=== PATIENT | female | born 1945 | race Caucasian/White ===

== ENCOUNTER 2019-05-04 12:41 | Day surgery (SDC) | payer OTHER ==
[~2019-05-04] VITALS: Ht 152.4 cm; Wt 85.0 kg
[~2019-05-04 12:41] MED LIST: ASPI81EC PO; ATOR80 PO; BUDE6HFA INH; CELE200 PO; CHOL10002 PO; CYAN1000 PO; CYCL10 PO; FISH1000 PO; LISI20 PO; MELO7.5 PO; METF500 PO; METO25ER PO; MONT10T PO; OXYB5 PO; Omeprazole20 M1 PO; PARO20 PO; PARO30 PO
== END 2019-05-04 15:20 | disposition home or self-care (01) ==
LOC: ORSCSDS 12:41
PROVIDERS: Surgery
PROC: 0DBN8ZX Excision of Sigmoid Colon, Via Natural or Artificial Opening Endoscopic, Diagnostic (ICD-10-PCS; principal; 2019-05-04 14:00)
DX: Z12.11 Encounter for screening for malignant neoplasm of colon (principal); Z86.010 Personal history of colon polyps; K63.5 Polyp of colon; E11.9 Type 2 diabetes mellitus without complications; I10 Essential (primary) hypertension; G47.33 Obstructive sleep apnea (adult) (pediatric); Z79.84 Long term (current) use of oral hypoglycemic drugs; J44.9 Chronic obstructive pulmonary disease, unspecified; Z87.891 Personal history of nicotine dependence; Z68.36 Body mass index [BMI] 36.0-36.9, adult; E66.9 Obesity, unspecified; Z79.82 Long term (current) use of aspirin; Z79.899 Other long term (current) drug therapy
CPT/HCPCS: 82947; 88305; J2704; J7120

== ENCOUNTER 2022-01-05 18:54 | Inpatient (IN) | payer OTHER ==
[~2022-01-05] VITALS: Ht 152.4 cm; Wt 89.5 kg
[2022-01-05 19:27] LABS: BASOPHILS ABSOLUTE AUTO 0.02 K/mm3 (0.00-0.23); BASOPHILS PERCENT AUTO 0 % (0-2); EOSINOPHILS ABSOLUTE AUTO 0.04 K/mm3 (0.00-0.68); EOSINOPHILS PERCENT AUTO 1 % (0-6); Hematocrit 38.7 % (33.0-51.0); Hemoglobin 12.9 g/dL (11.5-16.0); IMMATURE GRAN ABSOLUTE AUTO 0.03 K/mm3 (0.00-0.10); IMMATURE GRAN PERCENT AUTO 0 % (0-1); LYMPHOCYTES ABSOLUTE AUTO 1.06 K/mm3 (0.84-5.20); LYMPHOCYTES PERCENT AUTO 15 % (21-46); MONOCYTES ABSOLUTE AUTO 0.47 K/mm3 (0.16-1.47); MONOCYTES PERCENT AUTO 7 % (4-13); Mean Corpuscular HGB 30.1 pg (26.0-34.0); Mean Corpuscular HGB Conc 33.3 g/dL (31.5-36.5); Mean Corpuscular Volume 90 fL (80-100); Mean Platelet Volume 9.2 fL (9.1-12.4); NEUTROPHILS ABSOLUTE AUTO 5.49 K/mm3 (1.96-9.15); NEUTROPHILS PERCENT AUTO 77 % (41-73); Platelet Count 259 K/mm3 (150-400); RDW Coefficient Variation 14.2 % (11.7-14.2); RDW Standard Deviation 46.9 fL (35.1-46.3); Red Blood Cell Count 4.29 M/mm3 (3.80-5.20); White Blood Cell Count 7.11 K/mm3 (4.00-11.30)
[2022-01-05 19:38] LABS: Alanine Aminotransfer (ALT/SGP 48 U/L (12-78); Albumin, Blood 3.3 g/dL (3.4-5.0); Albumin/Globulin Ratio 0.8 (0.8-1.8); Alk Phos 86 U/L (50-136); Anion Gap 7 mmol/L (6-16); Aspartate Aminotrans (AST/SGOT 32 U/L (12-37); Bilirubin, Total 0.3 mg/dL (0.1-1.0); Blood Urea Nitrogen 17 mg/dL (8-24); CO2, Blood 32 mmol/L (21-32); Calcium, Blood 9.4 mg/dL (8.5-10.1); Chloride, Blood 99 mmol/L (98-108); Creatinine, Blood 0.81 mg/dL (0.40-1.00); Globulin, Blood 3.9 g/dL (2.2-4.0); Glomerular Filtration Rate >60 (60-); Glucose, Blood 133 mg/dL (70-99); Potassium, Blood 3.6 mmol/L (3.5-5.5); Sodium, Blood 138 mmol/L (136-145); Total Protein, Blood 7.2 g/dL (6.4-8.2)
[2022-01-05 20:09] LABS: Source, Urine Straight Cath
[2022-01-05 20:17] LABS: Appearance, Urine Cloudy (Clear); Bilirubin, Urine Neg (Neg); Blood, Urine Neg (Neg); Color, Urine Yellow (P-Yellow); Glucose Qualitative, Urine Neg (Neg); Ketones, Urine Neg (Neg); Leukocyte Esterase, Urine 1+ (Neg); Nitrite, Urine Neg (Neg); Protein, Urine 1+ (Neg); Urobilinogen, Urine NORM (Normal)
[2022-01-05 20:32] LABS: Amorphous Heavy (0-Heavy); Bacteria Many /hpf; Mucus Light (0-Heavy); Red Blood Cells, Urine 0-2 /hpf (0-2); Squamous Epithelial Cells Few /hpf (Few); White Blood Cells, Urine 0-2 /hpf (0-5)
[2022-01-06 00:46] LABS: CHOL/HDL RATIO 2.9; Cholesterol 123 mg/dL (50-200); HDL Cholesterol 42 mg/dL (>39); LDL/HDL RATIO 1.4; Low Density Lipoprotein Chol 57 mg/dL (0-110); Triglycerides 119 mg/dL (30-160); Very Low Density Lipoprot Chol 23 mg/dL (6-32)
[2022-01-06 04:46] LABS: BASOPHILS ABSOLUTE AUTO 0.03 K/mm3 (0.00-0.23); BASOPHILS PERCENT AUTO 0 % (0-2); EOSINOPHILS ABSOLUTE AUTO 0.04 K/mm3 (0.00-0.68); EOSINOPHILS PERCENT AUTO 1 % (0-6); Hemoglobin 12.2 g/dL (11.5-16.0); IMMATURE GRAN ABSOLUTE AUTO 0.03 K/mm3 (0.00-0.10); IMMATURE GRAN PERCENT AUTO 0 % (0-1); LYMPHOCYTES ABSOLUTE AUTO 1.62 K/mm3 (0.84-5.20); LYMPHOCYTES PERCENT AUTO 19 % (21-46); MONOCYTES ABSOLUTE AUTO 0.71 K/mm3 (0.16-1.47); MONOCYTES PERCENT AUTO 8 % (4-13); Mean Corpuscular HGB 29.8 pg (26.0-34.0); Mean Corpuscular HGB Conc 32.1 g/dL (31.5-36.5); Mean Corpuscular Volume 93 fL (80-100); Mean Platelet Volume 9.6 fL (9.1-12.4); NEUTROPHILS PERCENT AUTO 72 % (41-73); Platelet Count 261 K/mm3 (150-400); RDW Coefficient Variation 14.4 % (11.7-14.2); RDW Standard Deviation 48.9 fL (35.1-46.3); Red Blood Cell Count 4.09 M/mm3 (3.80-5.20); White Blood Cell Count 8.73 K/mm3 (4.00-11.30)
--- NOTE | 2022-01-06 05:01 | NUR ---
ON ARRIVAL TO UNIT FROM ER PATIENT NOTED WITH SLIGHT LEFT FACIAL DROOP, ON 3L NC AND C/O DOUBLE VISION THAT IS RELIVED BY CLOSING ONE EYE. PATIENT ABLE TO CORRECTLY ANSWER A/OX4 QUESTIONS HOWEVER NOTED WITH CONFUSION AND INTERMITTENT APHASIA. NURSE BEDSIDE SWALLOW STUDY DONE AND PATIENT COUGHING AFTER SECOND WATER SPOON GIVEN. PT STATES THAT SHE TYPICALLY DOES NOT COUGH WHEN EATING/DRINKING. DR. WEINSTEIN NOTIFIED OF NURSE BEDSIDE SWALLOW STUDY RESULT AND OF PT C/O OF DIPLOPIA. PATIENT MADE NPO AND ST TO EVAL IN AM.
[2022-01-06 05:11] LABS: Anion Gap 7 mmol/L (6-16); Blood Urea Nitrogen 15 mg/dL (8-24); Bun/Creatinine Ratio 17.9 (12.0-20.0); CO2, Blood 31 mmol/L (21-32); Calcium, Blood 8.6 mg/dL (8.5-10.1); Chloride, Blood 100 mmol/L (98-108); Creatinine, Blood 0.84 mg/dL (0.40-1.00); Glomerular Filtration Rate >60 (60-); Glucose, Blood 104 mg/dL (70-99); Potassium, Blood 3.5 mmol/L (3.5-5.5); Sodium, Blood 138 mmol/L (136-145)
--- NOTE | 2022-01-06 18:27 | NUR ---
SHIFT SUMMARY AT START OF SHIFT PT HAD SOME HEADACHE AND NAUSEA THAT WAS POSITIONAL. SHE WAS ABLE TO DO A STAND PIVOT TO THE CHAIR TO GET HERSELF MORE COMFORTABEL, BUT WHEN WORKING WITH PT AND OT SHE FELT DIZZY AND NAUSEOUS THIS AM. COGNITIVELY SHE SEEMS TO BE AT HE [facility] KNOWING DATE, TIME, FRIENDS AND FAMILY WHO CALL , AND ABLE TO RECOUNT HER HEALTH HISTORY TO ME. SHE IS STILL HAVING TROUBLE WITH URIN OUTPUT STATING THAT SHE " CAN FEEL THAT IM FULL BUT I CAN'T MAKE MYSELF GO" SHE WAS STRAIGHT CATHED THIS AFTERNOON AFTER A BLADDER SCAN OF 538 ML/ SHE IS CALM AND COMPLIANT WITH CARE AND NO LONGER COMPLAINING OF HEADACHE OR NAUSEA. WILL CONTINUE TO MONITOR.
--- NOTE | 2022-01-07 06:35 | NUR ---
PATIENT WITH NO NOTED CHANGES OVERNIGHT. UNABLE TO VOID AND BLADDER SCAN DONE PER ORDER. BLADDER SCAN AT 0444 WAS 237 STRAIGHT CATH NOT INDICATED PER ORDER. PATIENT A/OX4. NO CHANGES IN NEURO STATUS, NO DRIFT NOTED TO BUE/BLE, SLIGHT LEFT FACIAL DROOP UNCHANGED. PATIENT DID C/O NAUSEA AND MEDICATED PER OCT.
--- NOTE | 2022-01-07 18:23 | NUR ---
SHIFT SUMMARY MS BRUSH IS A&OX4. VERY MILD LEFT FACIAL DROOP, RIGHT HAND GOLF CADDY WEAKER THAN LEFT, NO NOTICABLE DIFFERENCE IN LEG STRENGTH. PT HAS DIZZYNESS WHEN SHE SITS UPRIGHT, BUT HAS BEEN ABLE TO GET UP TO THE CHAIR FOR LONG PERIODS TODAY. SHE HAS WORKED WITH OT AND PT. SHE IS STILL HAVING DIFFICULTY URINATING. SHE HAS VOIDED TWICE (350CC UOP). ENCOURAGED TO DRINK, SHE'S DRINKING WATER BUT HAS A HEIGHTENED SENSE OF SMELL AND ALTERED TASTE SENSATION. BLADDER SCANS DONE - ORDER IN TO DO STRAIGHT CATH FOR GREATER THAN 450, HIGH 300S ON BLADDER SCAN. LEFT HAND TREMOR. NO PAIN. NO SOB. ON CONTINUOUS PULSE OX. TRIED TO WEAN HER OFF THE OXYGEN, BUT SATS DOWN TO 87% ON ROOM AIR. NOW ON 1L NC IN AFSANEH 90S. BED LOW, CALL LIGHT IN REACH. USING CALL LIGHT APPROPRIATELY TODAY.
--- NOTE | 2022-01-08 05:58 | NUR ---
SHIFT SUMMARY 76 YR F ADMITTED ON 01/06/22 FOR RIGHT SIDED INFARCT. FULL CODE. NO ACUTE CHANGES THIS SHIFT. PT IS ABLE TO GET UP W/ ASSISTANCE AND AMBULATE TO BATHROOM. SHE HAS VOIDED TWICE THIS SHIFT FOR >350 ML, SO BALDDER SCANS WERE NOT DONE. SHE HAS SLIGHT DIZZINESS WHEN SHE FIRST STANDS UP AND IS A BIT UNSTEADY ON HER FEET SO 1 PERSON ASSIST W/ GAIT BELT IS RECOMMENDED. PT IS A&O X4 AND IS COOPERATIVE WITH HER CARE. SHE IS PLEASANT AND SWEET AND SEEMS DETERMINED TO GET BETTER.
[2022-01-08] MEDS ORDERED: MECL25 PO (12:24)
[2022-01-08] MEDS ORDERED: CLOP75 PO (12:24)
[2022-01-08 13:08] LABS: Influenza A, PCR NEGATIVE (NEGATIVE); Influenza B, PCR NEGATIVE (NEGATIVE); Resp Syncytial Virus, PCR NEGATIVE (NEGATIVE); SARS-Cov-2 (COVID-19) PCR, MMC NEGATIVE (NEGATIVE)
--- NOTE | 2022-01-08 15:56 | NUR ---
DISCHARGE PATIENT TRANSPORTED VIA WHEELCHAIR TO [facility]. PATIENT GOING TO [facility]. DISCHARGE INSTRUCTIONS FAXED TO [facility]. MEDICATIONS FAXED TO [facility]. IV REMOVED WITHOUT DIFFICULTY. TELE REMOVED WITHOUT DIFFICULTY. BELONGINGS SENT WITH PATIENT. [facility]SE [facility] WITH [facility]. [facility]. REPORT GIVEN TO ALENA GOMEZ NURSE AT [facility].
== END 2022-01-08 15:42 | DRG 65 ==
LOC: ER 18:54 → MEDS 18:55 → ER 01-06 01:57 → MEDS 01-06 14:57
PROVIDERS: Emergency Medicine; Internal Medicine; ADMIT Family Medicine
DX: I63.541 Cerebral infarction due to unspecified occlusion or stenosis of right cerebellar artery (principal); G81.94 Hemiplegia, unspecified affecting left nondominant side; I10 Essential (primary) hypertension; E66.9 Obesity, unspecified; G47.33 Obstructive sleep apnea (adult) (pediatric); F32.A Depression, unspecified; Z20.822 Contact with and (suspected) exposure to COVID-19; Z90.49 Acquired absence of other specified parts of digestive tract; Z68.37 Body mass index [BMI] 37.0-37.9, adult; Z90.710 Acquired absence of both cervix and uterus; Z98.890 Other specified postprocedural states; Z87.891 Personal history of nicotine dependence; Z88.8 Allergy status to other drugs, medicaments and biological substances; Z79.82 Long term (current) use of aspirin; Z79.899 Other long term (current) drug therapy
CPT/HCPCS: 0241U; 36415; 70450; 70496; 70498; 70551; 71045; 80048; 80053; 80061; 81001; 83036; 83605; 84484; 85025; 87040; 87086; 92610; 93005; 93010; 93306; 94660; 94760; 94762; 96372; 96374-59; 96375-59; 96376; 97110; 97112; 97162; 97166; 97530; 97535; 99285-25; A9270; G0378; J0696; J1650; J2405; J7030; Q9967

== ENCOUNTER 2023-09-06 10:02 | Day surgery (SDC) | payer OTHER ==
[~2023-09-06 10:02] MED LIST changes: +CLOP75 PO; -CYAN1000 PO; +MECL25 PO; +OMEP20ER PO; -Omeprazole20 M1 PO; +Vitamin B-12100 MCG PO
[2023-09-09] MEDS ORDERED: CIPR250 PO (09:32)
[2023-09-09] MEDS ORDERED: GUAI600T33 PO (09:32)
[2023-09-09] MEDS ORDERED: TRULICITY1.5 MG/0.1 SC (09:33)
[2023-09-09] MEDS ORDERED: MELO7.5 PO (09:34)
[2023-09-09] MEDS ORDERED: FISH OIL PO (09:34)
[2023-09-09] MEDS ORDERED: Lisinopril-Hct1 EAC4 PO (09:34)
[2023-09-09] MEDS ORDERED: PROP10 PO (09:35)
[2023-09-09] MEDS ORDERED: PANT40 PO (09:35)
[2023-09-09] MEDS ORDERED: VITAMIN K PO (09:35)
== END 2023-09-09 22:55 | disposition home or self-care (01) ==
LOC: MOI US 10:02
DX: C50.912 Malignant neoplasm of unspecified site of left female breast (principal); Z88.8 Allergy status to other drugs, medicaments and biological substances
CPT/HCPCS: 19285; 77065; A4648

== ENCOUNTER 2023-09-10 07:44 | Day surgery (SDC) | payer OTHER ==
[2023-09-10] VITALS (12 sets, daily range): BP systolic 117–138; BP diastolic 74–85
[~2023-09-10 07:44] MED LIST changes: +CIPR250 PO; +FISH OIL PO; +GUAI600T33 PO; +Lisinopril-Hct1 EAC4 PO; +PANT40 PO; +PROP10 PO; +TRULICITY1.5 MG/0.1 SC; +VITAMIN K PO
--- NOTE | 2023-09-10 09:21 | NUR ---
Wheelchaired into Day Surgery History, Chart, Medications and Allergies reviewed before start of procedure. Patient confirms NPO status and agrees with scheduled surgery. Patient States Post-Procedure ride home has been arranged with Son Nelson.
--- NOTE | 2023-09-10 12:58 | NUR ---
Discharge instructions reviewed with patient. Patient verbalizes understanding. Copy given to patient to take home. Patient up to AmbulatE WITH ASSISTANCE OF WALKER PER HER BASELINE Discharged via wheelchair to private car for ride home. PT ENCOURAGED TO USE ASSISTIVE DEVICES WELL FAMILY SUPPORT SHE IS MORE PRONE TO FALLING AFTER PROCEDURE.
== END 2023-09-10 12:57 | disposition home or self-care (01) ==
LOC: ORSCMMR 07:44 → NM 07:44 → ORSCMMR 07:47 → NM 08:00
PROVIDERS: Surgery
PROC: 07B60ZX Excision of Left Axillary Lymphatic, Open Approach, Diagnostic (ICD-10-PCS; principal; 2023-09-10 10:00)
PROC: 0HBU0ZZ Excision of Left Breast, Open Approach (ICD-10-PCS; principal; 2023-09-10 10:00)
DX: C50.912 Malignant neoplasm of unspecified site of left female breast (principal); D36.0 Benign neoplasm of lymph nodes; Z17.0 Estrogen receptor positive status [ER+]; I10 Essential (primary) hypertension; G47.33 Obstructive sleep apnea (adult) (pediatric); E11.9 Type 2 diabetes mellitus without complications; J45.909 Unspecified asthma, uncomplicated; Z68.36 Body mass index [BMI] 36.0-36.9, adult; Z79.84 Long term (current) use of oral hypoglycemic drugs; Z79.82 Long term (current) use of aspirin
CPT/HCPCS: 38792; 76098; 82947; 88305; 88307; 88342; A9270; A9520; J0690; J1100; J2371; J2405; J2704; J3010; J7120; Q9968